=== PATIENT | female | born 1950 | race American Indian/Alaskan Native ===

== ENCOUNTER 2016-07-27 15:44 | Emergency (ER) | payer MEDICARE ==
[2016-07-27 16:26] VITALS: BP 141/59
[2016-07-27] MEDS ORDERED: MOTRIN PO ONE (22:55)
[2016-07-27 22:57] LABS: Basophils % (Auto) 0.5 % (0.0-1.8); Eosinophils % (Auto) 1.6 % (0.0-4.3); Hemoglobin 11.6 gm/dl (10.1-14.3); Mean Corpuscular HGB Conc 33 % (30-34); Mean Corpuscular Hemoglobin 31 pg (28-32); Mean Corpuscular Volume 93 fl (79-97); Platelet Count 253 K/mm3 (140-440); Red Blood Count 3.75 M/mm3 (3.65-5.03); Red Cell Distribution Width 13.5 % (13.2-15.2); White Blood Count 4.9 K/mm3 (4.5-11.0)
--- NOTE | 2016-07-27 23:00 | Emergency Department Report ---
- General Chief Complaint: Puncture Wound Stated Complaint: PRICKED L THUMB W/USED DIABETIC RAMBO Time Seen by Provider: 07/27/16 22:06 Source: patient Mode of arrival: Ambulatory Limitations: No Limitations - History of Present Illness Initial Comments: Patient presents [facility] after her finger was draped with a used lancet. She states she was cleaning a bed and was stuck in her right and left thumb. She states that she would like to be checked for hepatitis and HIV. Occurrence happened Sunday night (last night). -: Sudden Location: other (bilateral thumbs) Place: other Context: accidental Associated Symptoms: none - Related Data Previous Rx's Medication Instructions Recorded Last Taken Type Emtricitabine/Tenofovir [Truvada 1 each PO DAILY #3 tablet 07/27/16 Unknown Rx 100 mg-150 mg Tablet] Raltegravir Potassium [Isentress] 100 mg PO BID #6 tab.chew 07/27/16 Unknown Rx Allergies Allergy/AdvReac Type Severity Reaction Status Date / Time Penicillins Allergy Rash Verified 07/27/16 16:30 ED Review of Systems ROS: Stated complaint: PRICKED L THUMB W/USED DIABETIC RAMBO Other details as noted in HPI Constitutional: denies: chills, fever ENT: denies: ear pain, throat pain Respiratory: denies: cough, shortness of breath, wheezing Cardiovascular: denies: chest pain, palpitations Gastrointestinal: denies: abdominal pain, nausea, diarrhea Genitourinary: denies: urgency, dysuria, discharge Musculoskeletal: denies: back pain, joint swelling, arthralgia Skin: as per HPI. denies: rash, lesions Neurological: denies: headache, weakness, paresthesias Hematological/Lymphatic: as per HPI ED Past Medical Hx - Past Medical History Hx Liver Disease: Yes (PTSD, bipolar, schizophrenia) - Surgical History Additional Surgical History: rotator cuff, hysterectomy - Social History Smoking Status: Never Smoker Substance Use Type: None - Medications Home Medications: Home Medications Medication Instructions Recorded Confirmed Last Taken Type Emtricitabine/Tenofovir [Truvada 1 each PO DAILY #3 tablet 07/27/16 Unknown Rx 100 mg-150 mg Tablet] Raltegravir Potassium [Isentress] 100 mg PO BID #6 tab.chew 07/27/16 Unknown Rx ED Physical Exam - General Limitations: No Limitations General appearance: alert, in no apparent distress - Head Head exam: Present: atraumatic, normocephalic - Eye Eye exam: Present: normal appearance - Neck Neck exam: Present: normal inspection - Respiratory Respiratory exam: Present: normal lung sounds bilaterally. Absent: respiratory distress - Cardiovascular Cardiovascular Exam: Present: regular rate, normal rhythm. Absent: systolic murmur, diastolic murmur, rubs, gallop - GI/Abdominal GI/Abdominal exam: Present: soft, normal bowel sounds - Neurological Exam Neurological exam: Present: alert, oriented X3 - Psychiatric Psychiatric exam: Present: normal affect, normal mood - Skin Skin exam: Present: warm, dry, intact, normal color, other (I do not appreciate any open wound on either thumbs.). Absent: rash ED Course Vital Signs 07/27/16 07/27/16 16:18 23:04 Temperature 98.3 F Pulse Rate 83 Respiratory 18 18 Rate Blood Pressure 141/59 O2 Sat by Pulse 97 Oximetry ED Medical Decision Making - Lab Data Result diagrams: 07/27/16 22:45 07/27/16 22:45 - Medical Decision Making Patient presents with puncture wound from a used lancet. Labs drawn for CBC, BMP, urinalysis, HIV and hepatitis panel. Truvada and Isentress 400mg x 1 in ED , then will give a three day supply and have pt f/u with infectious disease. - Differential Diagnosis accidental needle stick, hiv exposure, hepatitis exposure Critical Care Time: No Critical care attestation.: If time is entered above; I have spent that time in minutes in the direct care of this critically ill patient, excluding procedure time. ED Disposition Clinical Impression: Needlestick injury accident Disposition: DISCHARGED TO HOME OR SELFCARE Is pt being admited?: No Does the pt Need Aspirin: No Condition: Stable Instructions: Needle Stick Injuries (ED) Additional Instructions: I stressed the importance to the patient of following Dr. Villanueva, infectious disease after discharge. Prescriptions: Raltegravir Potassium [Isentress] 100 mg PO BID #6 tab.chew Emtricitabine/Tenofovir [Truvada 100 mg-150 mg Tablet] 1 each PO DAILY #3 tablet Referrals: PRIMARY CAREMD [Primary Care Provider] - 3-5 Days MARIVEL VILLANUEVA MD [Staff Physician] - 3-5 Days Time of Disposition: 00:08
[2016-07-27 23:15] LABS: BUN/Creatinine Ratio 24.28; Blood Urea Nitrogen 17 mg/dL (7-17); Calcium 8.6 mg/dL (8.4-10.2); Carbon Dioxide 23 mmol/L (22-30); Chloride 98.7 mmol/L (98-107); Glucose 124 mg/dL (65-100); Potassium 4.2 mmol/L (3.6-5.0); Sodium 136 mmol/L (137-145)
[2016-07-27 23:17] LABS: Alanine Aminotransferase 23 units/L (7-56); Albumin 3.8 g/dL (3.9-5); Albumin/Globulin Ratio 1.2 %; Alkaline Phosphatase 49 units/L (35-129); Bilirubin,Total 0.2 mg/dL (0.1-1.2)
[2016-07-27 23:21] LABS: Anion Gap 19 mmol/L; Bilirubin,Direct < 0.2 mg/dL (0-0.2)
[2016-07-27] MEDS ORDERED: ISENTRESS PO SCH (23:45)
[2016-07-28] MEDS ORDERED: EMTRIVA 200 MG, VIREAD 300 MG PO SCH (01:00)
[2016-07-28 01:30] LABS: Bilirubin,Urine NEG (Negative); Blood,Urine SM (Negative); Ketones,Urine NEG (Negative); Leukocyte Esterase,Urine SM (Negative); Nitrite,Urine NEG (Negative); Protein,Urine <15 mg/dL mg/dL (Negative); Urobilinogen,Urine < 2.0 mg/dL (<2.0)
[2016-07-28 02:08] LABS: HIV-1 Antigen p24 Non React (Non React); HIVR-1/2 Ab Non React (Non React)
== END 2016-07-28 01:15 | disposition home or self-care (01) ==
LOC: EDBD → ED 15:44
DX: S61.032A Puncture wound without foreign body of left thumb without damage to nail, initial encounter (principal); S61.031A Puncture wound without foreign body of right thumb without damage to nail, initial encounter; F31.9 Bipolar disorder, unspecified; F20.9 Schizophrenia, unspecified; Z88.0 Allergy status to penicillin; W26.8XXA Contact with other sharp object(s), not elsewhere classified, initial encounter; Y93.9 Activity, unspecified; Y99.9 Unspecified external cause status; Y92.89 Other specified places as the place of occurrence of the external cause
CPT/HCPCS: 36415; 80048; 80074; 81001; 85025; 87806; 99283

== ENCOUNTER 2016-07-31 15:37 | Outpatient (CLI) | payer MEDICARE ==
--- NOTE | 2016-07-31 16:22 | XRay Report ---
ROUTINE CHEST, TWO VIEWS: PA and lateral views demonstrate the heart and mediastinal contour to be of normal size and shape. The lungs are clear and fully expanded and the soft tissues and bony structures are normal. IMPRESSION: Normal study.
== END 2016-07-31 15:38 | disposition home or self-care (01) ==
LOC: XRAY 15:37
PROVIDERS: ATTEND Psychiatry & Neurology Psychiatry
DX: F33.1 Major depressive disorder, recurrent, moderate (principal)
CPT/HCPCS: 71020